=== PATIENT | female | born 1990 | race Caucasian/White ===

== ENCOUNTER → 2023-07-11 | Emergency (ER) | payer OTHER ==
[~2023-07-11] MED LIST: POTASSIUM 25 MEQ EFFERV TAB ONE
--- OUTSIDE RECORDS SUMMARY | 2023-07-11 19:28 | XMS REPORT | Continuity of Care Document ---
Author Name Unknown Address [address] [facility] [place], [place] [id number] [place] [address] thconnect Address [address] [facility] [place] [address] Care Team Providers Care Manager Lab Name Role Phone [id number], [id number] Attending Clinician Unavailable RANDALL MORALES Attending Clinician UnavailROSE Ambriz Attending Clinician Unavailab NORA Purdy Attending Clinician Unavailable MD LIZ Attending Clinician Unavailab jer Payers Payer Name Policy Type Policy Number Effective Date Expirati on Date Source [employer]ET[employer] 2 [id number] 2023 00:00:00 Allergies, Adverse Reactions, Alerts Allergy Name Allergy Type Status Severity Reaction(s) Onset Date Inactive Date Treating Clinician Comments Source Cat Hair Extract Propensi ty to adverse reaction s Active Itching 06-28 00:00: 00 Radha Eisenberga l Social History Social Habit Start Date Stop Date Quantity Comments Source ASSERTION 2023-06-08 00:00:00 Radha Dunn - External Sexual orientation K cesario Dunn - External Cigarettes smoked current (pack per day) - Reported 2023-06-28 00:00:00 2023-06-28 00:00:00 Radha Dunn - External Cigarette pack-years 2023-06-28 00:00:00 2023-06-28 00:00:00 Radha Dunn - External Tobacco use and exposure 2023-06-28 00:00:00 2023-06-28 00:00:00 Smokeless tobacco non-user Radha Dunn - External Alcohol intake 2023-06-28 00:00:00 2023-06-28 00:00:00 .29 /d Radha Dunn - External History of Social function 2023-06-28 00:00:00 2023-06-28 00:00:00 Radha Dunn - External Tobacco Comment 2023-06-28 00:00:00 2023-06-28 00:00:00 Stopped smoking 2 years ago. Radha Dunn - External Alcohol Comment 2023-06-28 00:00:00 2023-06-28 00:00:00 occasionally Radha Dunn - External History of tobacco use 2021-06-26 00:00:00 Cigarette Smoker Radha Dunn - External Sex Assigned At 1990 00:00:00 1990 00[birth year]00:00 Radha Dunn - External Smoking Status Start Date Stop Date Source Ex-smoker 2023-06-28 00:00:00 2023-06-28 00:00:00 Lexie nassar Mona - External Medications Ordered Medication Name Filled Medication Name Start Date Stop Date Current Medication? Ordering Clinician Indication Dosage Frequency Signature (SIG) Comments Components Source Rizatriptan Benzoate 5 MG oral Tablet 06-28 10:49: 26 Yes 5mg Take 1 tablet (5 mg total) by mouth once as needed for migraine (PRN for migraines) (May repeat in 2 hours if unresolved . Do not exceed 30 mg in 24 hours.). Radha andres MV-Min-Fe Fum-FA-DHA ( 1 OR) 06-28 10:49: 26 Yes 1{tbl} Take 1 tablet by mouth daily. Radha andres Vital Signs Vital Name Observation Time Observation Value Comments S ource Body height 2023-06-28 17:02:00 166.4 cm Renata Dunn - External Body weight 2023-06-28 17:01:00 58.06 kg Renata Dunn - External BMI 2023-06-28 17:01:00 20.98 kg/m2 Renata Dunn - External Encounters Start Date/Time End Date/Time Encounter Type Admission Type Attending [facility] Facility Care Department Encounter ID Source 2023-11-29 10:30:00 2023-11-29 10:30:00 Outpatient NOB47, NOB47 RADHA GARCIA [id number] Radha Dunn 2023-08-02 13:30:00 2023-08-02 13:30:00 Outpatient RANDALL MORALES RADHA GARCIA [id number] Radha [facility] 2023-07-19 10:00:00 2023-07-19 10:00:00 Outpatient ROSE HINOJOSA RADHA GARCIA [id number] Radha [facility] 2023-07-11 00:00:00 2023-07-11 00:00:00 Outpatient POLLYJAIMEPhi NORA RADHA GARCIA [id number] Radha [facility] 2023-07-09 00:00:00 2023-07-09 00:00:00 Outpatient MD RADHA HENSON [id number] Radha [facility] 2023-06-28 10:30:00 2023-06-28 10:30:00 Outpatient NOB47, NOB47 [facility] [id number] [facility] 2023-06-28 00:00:00 2023-06-28 00:00:00 Outpatient MD RADHA HENSON [id number] Radha [facility] 2023-06-28 00:00:00 2023-06-28 00:00:00 Outpatient MD RADHA HENSON [id number] Radha Dunn
[2023-07-11 20:01] LABS: Specific Gravity < 1.005 (1.005-1.030)
[2023-07-11 20:03] LABS: Specific Gravity < 1.005 (1.005-1.030); Urine Bacteria <20 /HPF (<20); Urine Bilirubin NEGATIVE (Negative); Urine Blood Negative (Negative); Urine Clarity Turbid (Clear); Urine Color Colorless (Yellow); Urine Glucose NEGATIVE (Negative); Urine Protein NEGATIVE (Negative); Urine RBC <5 /HPF (None Seen); Urine Urobilinogen Normal (Normal); Urine pH 6.5 (5.0-7.0)
[2023-07-11 20:33] LABS: Absolute Basophils 0.1 K/uL (0-0.5); Absolute Lymphocytes (CBC) 2.7 K/uL (0.7-4.9); Hematocrit 35.7 % (36.0-45.0); Lymphocytes % 35.2 % (15.3-44.8); MPV 8.7 fL (7.6-11.3); Platelets 281 thou/uL (152-406); RBC Red Blood Cell Count 3.93 M/uL (3.86-4.86)
--- NOTE | 2023-07-11 20:57 | RAD REPORT ---
EXAM DESCRIPTION: US - Transvaginal OB - 07/11/2023 8:23 pm CLINICAL HISTORY: ABD PAIN COMPARISON: No comparisons TECHNIQUE: Sonographic grayscale and color flow images of a first-trimester were obtained through transvaginal approach. FINDINGS: A twin live intrauterine is identified, likely bichorionic biamniotic . [place]-rump length measures 9.4 mm for twin A, and 9.5 mm for twin B, corresponding to gestational age of 7 weeks, 4 days for both. heart rate: 136 BPM for twin A and 145 BPM for twin B. Normal yolk sac is visualized for both fetuses. Maternal ovaries are unremarkable, apart from the presence of of a probable corpus luteum with margin al vascularity on the left. No free fluid. IMPRESSION: 1. Twin live intrauterine . 2. Calculated gestational age: 7 weeks, 4 days, for both fetuses. Estimated due date by ultrasound: .
[2023-07-11 21:06] LABS: Anion Gap 7.2 mEq/L (5.0-15.0); Potassium 3.2 mEq/L (3.5-5.1)
--- NOTE | 2023-07-11 22:01 | EDPHYS ---
Physician Documentation [facility] Name: Gena Ye Age: 33 yrs Sex: Female : 1990 Arrival Date: 07/11/2023 Time: 19:24 Bed 10 Private MD: ED Physician Tomás Quezada HPI: 07/10 19:40 This 33 yrs old Female presents to ER via Ambulatory with complaints of 6wks , cp General Weakness. 19:40 Associated signs and symptoms: Pertinent positives: fatigue, nausea, Pertinent cp negatives: abdominal pain, vomiting, vaginal bleeding, syncope, near syncope, chest pain. 19:40 Patient is a who presents to Ed with c/o fatigue, general weakness, nausea. 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 - Social history:: Smoking status: Patient/guardian denies using tobacco, Patient uses alcohol, but reports only rare drinking. Patient/guardian denies using street drugs. ROS: 19:45 Constitutional: Positive for fatigue, malaise, Negative for body aches, chills, fever, cp poor PO intake, 19:45 Eyes: Negative for injury, pain, redness, and discharge, cp 19:45 ENT: Negative for drainage from ear(s), ear pain, sore throat, difficulty swallowing, difficulty handling secretions, 19:45 Cardiovascular: Negative for chest pain, palpitations, 19:45 Respiratory: Negative for cough, shortness of breath, wheezing, 19:45 Abdomen/GI: Negative for abdominal pain, vomiting, diarrhea, constipation, 19:45 : Negative for urinary symptoms, vaginal bleeding, leakage of fluid, 19:45 Neuro: Positive for weakness, Negative for altered mental status, dizziness, headache, syncope, near syncope, 19:45 All other systems are negative, Exam: 19:50 Constitutional: The patient appears in no acute distress, alert, awake, non-toxic, well cp developed, well nourished, 19:50 Head/Face: Normocephalic, atraumatic. cp 19:50 Eyes: Periorbital structures: appear normal, Conjunctiva: normal, no exudate, no injection, Lids and lashes: appear normal, bilaterally, 19:50 ENT: External ear(s): are unremarkable, Nose: is normal, Mouth: Lips: moist, Oral mucosa: pink and intact, moist, Posterior pharynx: Airway: no evidence of obstruction, patent, 19:50 Chest/axilla: Inspection: normal, 19:50 Cardiovascular: Rate: normal, Rhythm: regular, 19:50 Respiratory: the patient does not display signs of respiratory distress, Respirations: normal, no use of accessory muscles, no retractions, labored breathing, is not present, Breath sounds: are clear throughout, no decreased breath sounds, no stridor, no wheezing, 19:50 Abdomen/GI: Inspection: abdomen appears normal, Palpation: abdomen is soft and non-tender, in all quadrants, 19:50 Back: pain, is absent, ROM is normal, 19:50 Neuro: Orientation: to person, place \T\ time. Mentation: is normal, Cerebellar function: is grossly normal, Motor: moves all fours, strength is normal, Sensation: is normal, 21:42 ECG was reviewed by the Attending Physician. cp Vital Signs: 19:33 BP 151 / 92; Pulse 75; Resp 16; Temp 98.7(TE); Pulse Ox 98% on R/A; Weight 58.06 kg 8 (R); Height 5 ft. 5 in. ; Pain 0/10; 20:31 BP 120 / 79 Supine; Pulse 72; Resp 17 S; Pulse Ox 98% on R/A; ha1 20:35 BP 112 / 70 Sitting; Pulse 63; Resp 17 S; Pulse Ox 100% on R/A; ha1 20:38 BP 113 / 69; Pulse 82; Resp 17 S; Pulse Ox 100% on R/A; ha1 19:33 Body Mass Index 21.30 (58.06 kg, 165.1 cm) [facility] 19:33 Pain Scale: Adult [facility] MDM: 19:40 Patient medically screened. cp 20:00 Differential diagnosis: viral Infection, bacterial infection, UTI, anemia. cp 22:00 Data reviewed: vital signs, nurses notes, lab test result(s), EKG, radiologic studies, cp ultrasound. 22:00 Counseling: I had a detailed discussion with the patient and/or guardian regarding the cp historical points, exam findings, and any diagnostic results supporting the discharge/admit diagnosis, lab results, radiology results, the need for outpatient follow up, an OB/Gyne specialist, to return to the emergency department if symptoms worsen or persist or if there are any questions or concerns that arise at home. Response to treatment: the patient's symptoms have mildly improved after treatment, and as a result, I will discharge patient. 07/10 19:36 Order name: Abo/rh Typing; Complete Time: 21:32 cp 07/10 19:36 Order name: Basic Metabolic Panel; Complete Time: 21:32 cp 07/10 21:32 Interpretation: Normal except: NA 134; K 3.2. cp 07/10 19:36 Order name: CBC with Diff; Complete Time: 21:32 cp 07/10 21:32 Interpretation: Normal except: HCT 35.7. cp 07/10 19:36 Order name: Test, Urine; Complete Time: 21:32 cp 07/10 19:36 Order name: Quantitative Hcg; Complete Time: 21:32 cp 07/10 19:36 Order name: Urinalysis w/ reflexes; Complete Time: 21:32 cp 07/10 19:36 Order name: US Transvaginal Ob; Complete Time: 21:32 cp 07/10 21:33 Order name: EKG; Complete Time: 21:33 cp 07/10 19:36 Order name: IV Saline Lock; Complete Time: 20:28 cp 07/10 19:36 Order name: Labs collected and sent; Complete Time: 20:28 cp 07/10 19:36 Order name: NPO; Complete Time: 20:28 cp 07/10 19:36 Order name: Orthostatics; Complete Time: 20:29 cp 07/10 21:33 Order name: EKG - Nurse/Tech; Complete Time: 21:49 cp EC:42 Rate is 60 beats/min. Rhythm is regular. MA interval is normal. QRS interval is normal. cp QT interval is normal. T waves are Inverted in lead aVR. Interpreted by me. Reviewed by me. Administered Medications: 21:40 Drug: Potassium PO Effervescent Tablet 50 mEq PO once; dissolve in 4 ounces of water or ha1 juice Route: PO; 22:09 Follow up: Response: No adverse reaction cm10 Disposition: 07/11 15:57 I was immediately available on-site in the Emergency Department for consultation in the ms3 care of the patient. Disposition Summary: 07/11/23 22:00 Discharge Ordered Notes: Location: Home cp Problem: new cp Symptoms: have improved cp Condition: Stable cp Diagnosis - Hypokalemia cp - Weakness cp - related conditions, unspecified, first trimester cp Followup: cp - With: Private Physician - When: 2 - 3 days - Reason: Recheck today's complaints Discharge Instructions: - Discharge Summary Sheet cp - Potassium Content of Foods cp - Care cp - Weakness cp - First Trimester of cp - Hypokalemia cp Forms: - Medication Reconciliation Form cp - Thank You Letter cp - Antibiotic Education cp - Prescription Opioid Use cp - Patient Portal Instructions cp - Leadership Thank You Letter cp Prescriptions: - Diclegis 10-10 mg Oral tablet, delayed release (enteric coated) - take 1 tablet ORAL route before meals and at bedtime As needed for nausea; 60 cp tablet; Refills: 0, Product Selection Permitted Signatures: Dispatcher [employer] EDMS Kel Rendon PA PA cp Tomás Quezada DO DO ms3 Aubrie Garcia RN RN 1 Lizzy Tinoco RN RN 8 Cindy Cortes RN cm10
--- NOTE | 2023-07-11 22:01 | ER ---
Nurse's Notes [facility] Name: Gena Ye Age: 33 yrs Sex: Female : 1990 Arrival Date: 07/11/2023 Time: 19:24 Bed 10 Private MD: Diagnosis: Hypokalemia;Weakness; related conditions, unspecified, first trimester Presentation: 07/10 19:33 Chief complaint: Patient states: 2 episodes of generalized weakness with feeling km8 faintness but never passed out; OB sent her here to check on baby; pt is 6 weeks ; denies vaginal bleeding. Coronavirus screen: Client denies travel out of the [place] in the last 14 days. Ebola Screen: No symptoms or risks identified at this time. Initial Sepsis Screen: Does the patient meet any 2 criteria? No. Patient's initial sepsis screen is negative. Does the patient have a suspected source of infection? No. Patient's initial sepsis screen is negative. Risk Assessment: Do you want to hurt yourself or someone else? Patient reports no desire to harm self or others. Onset of symptoms was July 11, 2023. 19:33 Method Of Arrival: Ambulatory [facility] 19:33 Acuity: SUE 3 km8 Triage Assessment: 19:35 General: Appears in no apparent distress. comfortable, Behavior is cooperative, km8 appropriate for age, anxious. Pain: Denies pain. Neuro: Level of Consciousness is awake, alert, obeys commands, Oriented to person, place, time, situation. Cardiovascular: Denies chest pain, shortness of breath, Patient's skin is warm and dry. Respiratory: Airway is patent Respiratory effort is even, unlabored, Respiratory pattern is regular, symmetrical. : Denies vaginal bleeding. Derm: Skin is intact, is healthy with good turgor, Skin is dry, Skin is pink, warm \T\ dry. Skin temperature is warm. 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 - Social history:: Smoking status: Patient/guardian denies using tobacco, Patient uses alcohol, but reports only rare drinking. Patient/guardian denies using street drugs. Screenin:[facility] ED Fall Risk Assessment (Adult) History of falling in the last 3 months, ha1 including since admission No falls in past 3 months (0 pts) Confusion or Disorientation No (0 pts) Intoxicated or Sedated No (0 pts) Impaired Gait No (0 pts) Mobility Assist Device Used No (0 pt) Altered Elimination No (0 pt) Score/Fall Risk Level 0 - 2 = Low Risk Oriented to surroundings, Maintained a safe environment, Educated pt \T\ family on fall prevention, incl call for assistance when getting out of bed, Hourly rounding (assess needs \T\ fall precautionary measures) done. Abuse screen: Denies threats or abuse. Denies injuries from another. Nutritional screening: No deficits noted. Tuberculosis screening: No symptoms or risk factors identified. Assessment: 19:32 Reassessment: going to Ultrasound. ha1 19:49 Reassessment: back from Ultrasound. ha1 19:50 General: Appears comfortable, Behavior is calm, cooperative. Pain: Denies pain. Neuro: ha1 Level of Consciousness is awake, alert, obeys commands, Oriented to person, place, time, situation. Neuro: Reports feeling weak and without energies . Cardiovascular: Capillary refill < 3 seconds Patient's skin is warm and dry. Respiratory: Airway is patent Respiratory effort is even, unlabored, Respiratory pattern is regular, symmetrical. Derm: Skin is pink, warm \T\ dry. Musculoskeletal: Circulation, motion, and sensation intact. Range of motion: intact in all extremities. Vital Signs: 19:33 BP 151 / 92; Pulse 75; Resp 16; Temp 98.7(TE); Pulse Ox 98% on R/A; Weight 58.06 kg km8 (R); Height 5 ft. 5 in. ; Pain 0/10; 20:31 BP 120 / 79 Supine; Pulse 72; Resp 17 S; Pulse Ox 98% on R/A; ha1 20:35 BP 112 / 70 Sitting; Pulse 63; Resp 17 S; Pulse Ox 100% on R/A; ha1 20:38 BP 113 / 69; Pulse 82; Resp 17 S; Pulse Ox 100% on R/A; ha1 19:33 Body Mass Index 21.30 (58.06 kg, 165.1 cm) km8 19:33 Pain Scale: Adult km8 ED Course: 19:27 Patient arrived in ED. mr 19:28 Kel Rendon PA is PHCP. cp 19:28 Tomás Quezada DO is Attending Physician. cp 19:35 Triage completed. km8 19:35 Arm band placed on right wrist. km8 19:38 Patient has correct armband on for positive identification. Placed in gown. Bed in low ha1 position. Call light in reach. Side rails up X 1. 19:55 Urine collected: clean catch specimen, clear. km8 20:05 Inserted saline lock: 20 gauge in right antecubital area, using aseptic technique. ha1 Blood collected. 20:25 US Transvaginal Ob In Process Unspecified. EDMS 20:28 Abo/rh Typing Sent. ha1 20:28 Basic Metabolic Panel Sent. ha1 20:29 CBC with Diff Sent. ha1 20:29 Quantitative Hcg Sent. ha1 20:36 Aubrie Garcia, RN is Primary Nurse. ha1 22:09 Provided Education on: Follow-up instructions. cm10 22:09 No provider procedures requiring assistance completed. IV discontinued, intact, cm10 bleeding controlled, No redness/swelling at site. Pressure dressing applied. Administered Medications: 21:40 Drug: Potassium PO Effervescent Tablet 50 mEq PO once; dissolve in 4 ounces of water or ha1 juice Route: PO; 22:09 Follow up: Response: No adverse reaction cm10 Medication: 22:09 VIS not applicable for this client. cm10 Outcome: 22:00 Discharge ordered by . cp 22:09 Discharged to home ambulatory, with significant other, cm10 22:09 Condition: good 22:09 Discharge instructions given to patient, significant other, Instructed on discharge instructions, follow up and referral plans. medication usage, Demonstrated understanding of instructions, follow-up care, medications, Prescriptions given X 1, 22:09 Patient left the ED. cm10 Signatures: Dispatcher [employer] EDME ZachariahFe, Reg Reg Kel Rendon PA PA cp Ayala, Heidy, RN RN 1 Cindy Cortes RN RN 10 Lizzy Tinoco RN RN km8 Corrections: (The following items were deleted from the chart) 21:01 19:38 Reassessment: going to Ultrasound ha1 ha1
[2023-07-11 23:32] VITALS: BP 113/69; TEMP 98.7; O2SAT 100
== END ==
LOC: ER 19:24
DX: O30.041 Twin pregnancy, dichorionic/diamniotic, first trimester (principal); O99.281 Endocrine, nutritional and metabolic diseases complicating pregnancy, first trimester; E87.6 Hypokalemia; Z3A.01 Less than 8 weeks gestation of pregnancy
CPT/HCPCS: 36415; 76817; 80048; 81001; 81025; 84702; 85025; 86900; 86901; 93005; 99284

== ENCOUNTER 2024-02-13 18:36 | Emergency (ER) | payer OTHER ==
--- NOTE | 2024-02-13 19:34 | RAD REPORT ---
EXAMINATION: ONE VIEW CHEST XR CLINICAL INDICATION: Female, 33 years old.SOB TECHNIQUE: 1 View, AP supine, X-ray of the chest was performed. [id number]. COMPARISON: No prior exam. FINDINGS: Lungs and pleura: Clear lungs. No effusion. Heart and mediastinum: Normal heart size. Unremarkable mediastinal contours. Osseous structures: No acute abnormality. Tubes/lines: None Other: None. IMPRESSION: No acute intrathoracic abnormality.
[2024-02-13 19:43] LABS: Absolute Basophils 0.1 K/uL (0-0.5); Absolute Eosinophils 0.1 K/uL (0-0.5); Absolute Lymphocytes (CBC) 2.5 K/uL (0.7-4.9); Absolute Monocytes 0.6 K/uL (0.1-1.3); Absolute Neutrophil 5.5 K/uL (1.8-8.0); Basophils % 0.8 % (0-1.3); Eosinophils % 1.5 % (0-4.4); Hematocrit 26.6 % (36.0-45.0); Hemoglobin 9.2 g/dL (12.0-15.0); Lymphocytes % 28.1 % (15.3-44.8); MCH 34.5 pg (27.0-35.0); MCHC 34.7 g/dL (32.0-36.0); MCV 99.2 fL (80-100); Monocytes % 6.7 % (3.3-12.3); Neutrophils % 62.9 % (41.7-73.7); Nucleated Red Blood Cells % 0.1 % (0-0); Platelets 376 thou/uL (152-406); RBC Red Blood Cell Count 2.68 M/uL (3.86-4.86); Red Cell Distribution Width 12.8 % (12.1-15.2)
[2024-02-13 19:55] LABS: Specific Gravity 1.006 (1.005-1.030); Sqamous Epithelial <5 /HPF (None Seen); Urine Bacteria None Seen /HPF (<20); Urine Bilirubin NEGATIVE (Negative); Urine Blood 3+ (Negative); Urine Clarity Clear (Clear); Urine Color Colorless (Yellow); Urine Culture Reflex Order NOT NEEDED; Urine Glucose NEGATIVE (Negative); Urine Ketones NEGATIVE (Negative); Urine Microscopic Reflex YN ORDER UMIC; Urine Nitrite NEGATIVE (Negative); Urine Protein NEGATIVE (Negative); Urine RBC <5 /HPF (None Seen); Urine Urobilinogen Normal (Normal); Urine WBC <5 /HPF (<5)
[2024-02-13 20:03] LABS: PT Prothrombin Time 9.9 SECONDS (9.4-12.5); Protime INR 0.88
[2024-02-13 20:27] LABS: ALT/SGPT 51 U/L (13-56); AST/SGOT 68 U/L (15-37); Albumin 2.4 g/dL (3.4-5.0); Albumin/Globulin Ratio 0.6 (1.1-1.8); Alkaline Phosphatase 119 U/L (45-117); Anion Gap 10.5 mEq/L (5.0-15.0); BUN Blood Urea Nitrogen 9 mg/dL (7-18); Bicarbonate 23 mEq/L (21-32); Bilirubin Total 0.3 mg/dL (0.2-1.0); Globulin 3.7 g/dL (2.3-3.5); Glomerular Filtration Rate 120 ml/min (=/>90); Glucose Level 91 mg/dL (74-106); NT PRO-BNP 442 pg/mL (<125); Potassium 3.5 mEq/L (3.5-5.1); Protein, Total 6.1 g/dL (6.4-8.2); Sodium Level 142 mEq/L (136-145); Troponin High Sensitivity 6.7 pg/mL (<58.9)
[2024-02-13 20:29] LABS: Bilirubin Direct < 0.2 mg/dL (0-0.2); Bilirubin Indirect, Calculated 0.1 mg/dL (0.2-0.8)
[2024-02-13 20:45] LABS: Magnesium 2.2 mg/dL (1.6-2.4)
--- NOTE | 2024-02-13 21:12 | RAD REPORT ---
EXAMINATION: US LOWER EXTREMITY VENOUS DOPPLER BILATERAL CLINICAL INDICATION: Female, 33 years old.SWELLING TECHNIQUE: Complete bilateral duplex sonography of the lower extremity veins was performed. The exami nation included compression for vein patency, color Doppler imaging and flow augmentation in response to distal compression of the distal external iliac, common femoral, femoral, popliteal, crissy samantha, tibial and great saphenous veins. [id number]. COMPARISON: No prior exams FINDINGS: Duplex sonography imaging demonstrates all deep examined to be fully compressible with spontaneous, p hasic and augmented flow bilaterally. IMPRESSION: No evidence of deep venous thrombosis seen in either lower extremity.
--- NOTE | 2024-02-13 22:21 | ER ---
Nurse's Notes [facility] Name: Gena Ye Age: 33 yrs Sex: Female : 1990 Arrival Date: 02/13/2024 Time: 18:36 Bed 20 Private MD: Diagnosis: Edema, unspecified;Anemia, unspecified;Shortness of breath Presentation: 02/12 18:39 Chief complaint: Patient states: having chest tightness for a few days, has had edema ko1 to bilat lower ext since Saturday. Had a on Saturday, delivered twins. Coronavirus screen: At this time, the client does not indicate any symptoms associated with coronavirus-19. Ebola Screen: No symptoms or risks identified at this time. 18:39 Method Of Arrival: Wheelchair ko1 18:39 Initial Sepsis Screen: Does the patient meet any 2 criteria? No. Patient's initial ko1 sepsis screen is negative. Does the patient have a suspected source of infection? No. Patient's initial sepsis screen is negative. Risk Assessment: Do you want to hurt yourself or someone else? Patient reports no desire to harm self or others. Onset of symptoms is unknown. 18:39 Acuity: SUE 3 ko1 Triage Assessment: 18:43 General: Appears in no apparent distress. Behavior is calm, cooperative, appropriate ko1 for age. Pain: Denies pain. Cardiovascular: Reports chest pain, edema to lower extremities. 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 - Infectious Disease History:: Denies. - Social history:: Smoking status: Patient denies any tobacco usage or history of. Screenin:40 [facility] ED Fall Risk Assessment (Adult) History of falling in the last 3 months, dd2 including since admission No falls in past 3 months (0 pts) Confusion or Disorientation No (0 pts) Intoxicated or Sedated No (0 pts) Impaired Gait No (0 pts) Mobility Assist Device Used No (0 pt) Altered Elimination No (0 pt) Score/Fall Risk Level 0 - 2 = Low Risk Oriented to surroundings, Maintained a safe environment, Educated pt \T\ family on fall prevention, incl call for assistance when getting out of bed, Assessed \T\ reinforced patient's understanding of fall precautions, Hourly rounding (assess needs \T\ fall precautionary measures) done. Abuse screen: Denies threats or abuse. Nutritional screening: No deficits noted. Tuberculosis screening: No symptoms or risk factors identified. Assessment: 19:30 General: Appears in no apparent distress. Behavior is calm, cooperative, appropriate dd2 for age. Pain: Complains of pain in chest Pain does not radiate. Pain currently is 3 out of 10 on a pain scale. Pain began gradually. Neuro: Level of Consciousness is awake, alert, obeys commands, Oriented to person, place, time, situation, Appropriate for age. Cardiovascular: Reports chest pain, shortness of breath, EDEMA BLE Heart tones S1 S2 Patient's skin is warm and dry. Rhythm is sinus rhythm. Respiratory: Airway is patent Respiratory effort is even, unlabored, Respiratory pattern is regular, symmetrical, Breath sounds are clear bilaterally. Onset: The symptoms/episode began/occurred gradually, the patient has mild shortness of breath. GI: No deficits noted. No signs and/or symptoms were reported involving the gastrointestinal system. Abdomen is round 6 DAYS POST . : No deficits noted. No signs and/or symptoms were reported regarding the genitourinary system. Urine is cloudy. EENT: No deficits noted. No signs and/or symptoms were reported regarding the EENT system. Derm: No deficits noted. No signs and/or symptoms reported regarding the dermatologic system. Musculoskeletal: No deficits noted. No signs and/or symptoms reported regarding the musculoskeletal system. Circulation, motion, and sensation intact. Range of motion: intact in all extremities. Vital Signs: 18:39 BP 143 / 94; Pulse 71; Resp 16; Temp 97.1; Pulse Ox 100% ; ko1 19:40 BP 138 / 94; Pulse 63; Resp 16; Pulse Ox 98% ; dd2 20:30 BP 135 / 89; Pulse 65; Resp 16; Pulse Ox 99% ; dd2 21:30 BP 138 / 86; Pulse 62; Resp 16; Pulse Ox 99% ; dd2 21:30 BP 134 / 91; Pulse 48; Resp 15; Pulse Ox 100% ; dd2 ED Course: 18:38 Patient arrived in ED. mr 18:38 Kel Rendon PA is PHCP. cp 18:38 Bob Norris MD is Attending Physician. cp 18:43 Triage completed. ko1 18:43 Arm band placed on right wrist. 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 19:13 JULIO VELAZQUEZ, RN is Primary Nurse. dd2 19:27 XRAY Chest (1 view) In Process Unspecified. EDMS 19:38 Type And Screen Sent. dd2 19:38 Ptt, Activated Sent. dd2 19:39 Basic Metabolic Panel Sent. dd2 19:39 CBC with Diff Sent. dd2 19:39 LFT's Sent. dd2 19:39 Magnesium Sent. dd2 19:39 NT PRO-BNP Sent. dd2 19:39 PT-INR Sent. dd2 19:39 Troponin HS Sent. dd2 19:39 No provider procedures requiring assistance completed. Initial lab(s) drawn, by pa, dd2 sent to lab. EKG done, by ED staff, reviewed by Bob Norris MD. Inserted saline lock: 20 gauge in right antecubital area, using aseptic technique. Blood collected. Flushed with 10 mL NS. Patient maintains SpO2 saturation greater than 95% on room air. 19:40 Patient has correct armband on for positive identification. Bed in low position. Call dd2 light in reach. Side rails up X 1. Provided Education on: CALL LIGHT, LABS/RRADIOLOGY, PROCEDURE RESULT TIMES. Client placed on continuous cardiac and pulse oximetry monitoring. NIBP monitoring applied. gambling monitor on. Door closed. Noise minimized. Warm blanket given. Pillow given. Verbal reassurance given. 21:03 US Extremity Venous W Compression Gonzalez In Process Unspecified. EDMS 22:08 Chepe Christiansen MD is Attending Physician. cp 22:29 IV discontinued, intact, bleeding controlled, No redness/swelling at site. Pressure dd2 dressing applied. Administered Medications: No medications were administered Medication: 19:40 VIS not applicable for this client. dd2 Outcome: 22:20 Discharge ordered by . cp 22:29 Discharged to home ambulatory, dd2 22:29 Condition: stable 22:29 Discharge instructions given to patient, significant other, Instructed on discharge instructions, follow up and referral plans. Demonstrated understanding of instructions, follow-up care, 22:30 Patient left the ED. dd2 Signatures: Dispatcher [employer] Fe Peña, Reg Reg mr Kel Rendon, PA Cara Dimas cp, RN RN ko1 JULIO VELAZQUEZ RN RN dd2 Corrections: (The following items were deleted from the chart) 18:45 18:43 Home Meds: Vitamin Oral; ko1 ko1
--- NOTE | 2024-02-13 22:21 | EDPHYS ---
Physician Documentation [facility] Name: Gena Ye Age: 33 yrs Sex: Female : 1990 Arrival Date: 02/13/2024 Time: 18:36 Bed 20 Private MD: ED Physician Chepe Christiansen HPI: 02/12 19:00 This 33 yrs old Female presents to ER via Wheelchair with complaints of Chest cp Tightness, High Blood Pressure, Facial Swelling, Leg Swelling. 19:00 The patient has shortness of breath with light activity. Onset: The symptoms/episode cp began/occurred for past few days. 19:00 Duration: The symptoms are continuous, and are steadily getting worse. Associated signs cp and symptoms: Pertinent positives: chest tightness, lower extremity edema, Pertinent negatives: non-productive cough, productive cough, dizziness, fever, hemoptysis, vomiting. Severity of symptoms: in the emergency department the symptoms are unchanged despite home interventions. Patient reports recent delivery of twin infants this past Saturday by delivery. 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 - Infectious Disease History:: Denies. - Social history:: Smoking status: Patient denies any tobacco usage or history of. ROS: 19:05 Constitutional: Negative for body aches, chills, fever, poor PO intake, cp 19:05 Eyes: Negative for injury, pain, redness, and discharge, cp 19:05 ENT: Negative for drainage from ear(s), ear pain, sore throat, difficulty swallowing, difficulty handling secretions, 19:05 Cardiovascular: Positive for chest pain, edema, Negative for palpitations, 19:05 Respiratory: Positive for shortness of breath, on exertion. Negative for cough, wheezing, 19:05 Abdomen/GI: Negative for abdominal pain, vomiting, diarrhea, constipation, 19:05 : Positive for vaginal bleeding, Negative for urinary symptoms, 19:05 Neuro: Negative for altered mental status, dizziness, headache, numbness, syncope, near syncope, weakness, 19:05 All other systems are negative, Exam: 19:10 Constitutional: The patient appears in no acute distress, alert, awake, cp non-diaphoretic, non-toxic, well developed, well nourished, 19:10 Head/Face: Normocephalic, atraumatic. cp 19:10 Eyes: Periorbital structures: appear normal, Conjunctiva: normal, no exudate, no injection, Sclera: no appreciated abnormality, Lids and lashes: appear normal, bilaterally, 19:10 ENT: External ear(s): are unremarkable, Nose: is normal, Mouth: Lips: moist, Oral mucosa: moist, Posterior pharynx: Airway: no evidence of obstruction, patent, 19:10 Neck: ROM/movement: pain, is not appreciated, limited range of motion, is not appreciated, 19:10 Chest/axilla: Inspection: normal, 19:10 Cardiovascular: Rate: normal, Rhythm: regular, Edema: pedal edema, that is moderate, ankle edema, that is moderate, JVD: is not appreciated, 19:10 Respiratory: the patient does not display signs of respiratory distress, Respirations: normal, no use of accessory muscles, no retractions, labored breathing, is not present, Breath sounds: are clear throughout, no decreased breath sounds, no stridor, no wheezing, 19:10 Abdomen/GI: Inspection: distension, is not seen, Palpation: soft, in all quadrants, mild abdominal tenderness, in the right lower quadrant and left lower quadrant, 19:10 Back: pain, is absent, ROM is normal, 19:10 Neuro: Orientation: to person, place \T\ time. Mentation: is normal, Motor: moves all fours, strength is normal, Sensation: is normal, 19:40 ECG was reviewed by the Attending Physician. cp Vital Signs: 18:39 BP 143 / 94; Pulse 71; Resp 16; Temp 97.1; Pulse Ox 100% ; ko1 19:40 BP 138 / 94; Pulse 63; Resp 16; Pulse Ox 98% ; dd2 20:30 BP 135 / 89; Pulse 65; Resp 16; Pulse Ox 99% ; dd2 21:30 BP 138 / 86; Pulse 62; Resp 16; Pulse Ox 99% ; dd2 21:30 BP 134 / 91; Pulse 48; Resp 15; Pulse Ox 100% ; dd2 MDM: 18:50 Patient medically screened. cp 20:00 Differential diagnosis: CHF exacerbation, Myocardial Infarction pneumonia, Pneumothorax cp pulmonary edema, Pulmonary Embolism Sepsis. 22:20 Independent interpretation of the following test(s) in the Emergency Department EKG: cp See my EKG interpretation above X-Ray: My interpretation is chest image negative for infiltrates and/or pulmonary edema. 22:20 Counseling: I had a detailed discussion with the patient and/or guardian regarding the cp historical points, exam findings, and any diagnostic results supporting the discharge/admit diagnosis, lab results, radiology results, the need for outpatient follow up, an OB/Gyne specialist, to return to the emergency department if symptoms worsen or persist or if there are any questions or concerns that arise at home. 23:28 Data reviewed: vital signs, nurses notes, old medical records, lab test result(s), sp4 radiologic studies, plain films, ultrasound. ED course: Patient was evaluated and she seems to have standard edema associated with hypoalbuminemia. Advised high-protein diet and red meats for anemia. Twice stable for discharge home.. 02/12 18:58 Order name: Basic Metabolic Panel; Complete Time: 20:47 cp 02/12 20:34 Interpretation: Normal except: CL 112. cp 02/12 18:58 Order name: CBC with Diff; Complete Time: 20:06 cp 02/12 20:06 Interpretation: Normal except: RBC 2.68; HGB 9.2; HCT 26.6. cp 02/12 18:58 Order name: LFT's; Complete Time: 20:47 cp 02/12 20:56 Interpretation: Normal except: AST 68; ALK 119; IBILI, CALC 0.1; TP 6.1; ALB 2.4; GLOB cp 3.7; A/G 0.6. 02/12 18:58 Order name: Magnesium; Complete Time: 20:47 cp 02/12 18:58 Order name: NT PRO-BNP; Complete Time: 20:47 cp 02/12 20:34 Interpretation: Abnormal: NT PRO-BNP 442. cp 02/12 18:58 Order name: PT-INR; Complete Time: 20:06 cp 02/12 18:58 Order name: Troponin HS; Complete Time: 20:47 cp 02/12 18:58 Order name: Ptt, Activated; Complete Time: 20:06 cp 02/12 18:58 Order name: Urinalysis w/ reflexes; Complete Time: 20:06 cp 02/12 18:58 Order name: Type And Screen; Complete Time: 20:35 cp 02/12 21:16 Order name: Troponin High Sensitivity; Complete Time: 22:15 cp 02/12 22:16 Interpretation: Reviewed. 02/12 18:58 Order name: XRAY Chest (1 view); Complete Time: 19:41 cp 02/12 20:07 Order name: US Extremity Venous W Compression Gonzalez; Complete Time: 21:14 cp 02/12 21:14 Interpretation: Report reviewed. 02/12 18:58 Order name: Cardiac monitoring; Complete Time: 19:38 02/12 18:58 Order name: EKG - Nurse/Tech; Complete Time: 19:38 cp 02/12 18:58 Order name: IV Saline Lock; Complete Time: 19:38 cp 02/12 18:58 Order name: Labs collected and sent; Complete Time: 19:39 02/12 18:58 Order name: O2 Per Protocol; Complete Time: 19:39 cp 02/12 18:58 Order name: O2 Sat Monitoring; Complete Time: 19:39 cp EC:40 Rate is 71 beats/min. Rhythm is regular. UT interval is normal. QRS interval is normal. cp QT interval is normal. T waves are Inverted in lead aVR. Interpreted by me. Reviewed by me. Administered Medications: No medications were administered Disposition: 23:28 Co-signature as Attending Physician, Chepe Christiansen MD I agree with the assessment sp4 and plan of care. I reviewed the patient's care provided by Advanced Practice Provider \T\ agree w/ the diagnosis \T\ care plan. I personally saw the pt \T\ performed a substantive portion of the visit, incldng all aspects of the (History/Exam/Medical Decision Making). Disposition Summary: 02/13/24 22:20 Discharge Ordered Notes: Location: Home cp Problem: new cp Symptoms: have improved cp Condition: Stable cp Diagnosis - Edema, unspecified cp - Anemia, unspecified cp - Shortness of breath cp Followup: cp - With: Private Physician - When: 2 - 3 days - Reason: Worsening of condition Discharge Instructions: - Discharge Summary Sheet cp - Anemia cp - Shortness of Breath, Adult cp - Care After Delivery cp - Peripheral Edema cp - How to Use Compression Stockings cp Forms: - Medication Reconciliation Form cp - Antibiotic Education cp - Prescription Opioid Use cp - Patient Portal Instructions cp - Leadership Thank You Letter cp Signatures: Dispatcher [employer] EDMS Kel Rendon PA PA cp Cara Bateman, RN RN ko1 Chepe Christiansen MD MD sp4 Corrections: (The following items were deleted from the chart) 18:45 18:43 Home Meds: Vitamin Oral; ko1 ko1 20:07 20:07 Extrem Venous W Compression [id number] ordered. EDMS EDMS
[2024-02-13 22:53] VITALS: TEMP 97.1
[2024-02-13 22:57] VITALS: BP 134/91; O2SAT 100
--- NOTE | 2024-02-14 14:07 | EKG ---
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
== END 2024-02-13 22:30 | disposition home or self-care (01) ==
LOC: ER 18:36
DX: R60.9 Edema, unspecified (principal); D64.9 Anemia, unspecified; R06.02 Shortness of breath; R07.89 Other chest pain
CPT/HCPCS: 36415; 71045; 80048; 80076; 81001; 83735; 83880; 84484; 85025; 85610; 85730; 86850; 86900; 86901; 93005; 93970